=== PATIENT | female | born 1950 | race Caucasian/White ===

== ENCOUNTER 2020-03-25 07:44 | Outpatient (CLI) | payer MEDICARE, OTHER, SELFPAY ==
--- NOTE | ~2020-03-25 | MM_ITS ---
EXAMINATION: MM screening [facility] BI w jeanmarie HISTORY: Screening mammogram, family history of breast cancer in her mother. TECHNIQUE: Craniocaudal and mediolateral oblique 3-D tomosynthesis images were obtained and synthetic 2-D images were generated. CAD analysis was submitted and interpreted. COMPARISON: 03/06/2019, 03/03/2018, 03/01/2017 BREAST PARENCHYMAL COMPOSITION: The breasts are heterogeneously dense, which may obscure small masses . FINDINGS: Again seen is a stable left breast mass, consistent with a benign finding. There is no evid ence of suspicious mass, calcification, or architectural distortion to suggest malignancy in either b reast. There has been no suspicious interval change. IMPRESSION: 1. No mammographic evidence of malignancy. 2. Recommend routine screening mammography in one year. BI-RADS Category 2: Benign finding(s). Reviewed, dictated and finalized at location A. STED LIVING CARE MANAGER
== END 2020-03-25 07:45 | disposition home or self-care (01) ==
LOC: ANHIMG 07:48
PROVIDERS: PCP Family Medicine; Visit Provider Obstetrics & Gynecology
DX: Z12.31 Encounter for screening mammogram for malignant neoplasm of breast (principal)
CPT/HCPCS: 77063; 77067

== ENCOUNTER 2021-05-29 08:10 | Outpatient (CLI) | payer MEDICARE, OTHER, SELFPAY ==
--- NOTE | ~2021-05-29 | MM_ITS ---
EXAMINATION: MM screening [facility] BI w jeanmarie HISTORY: Screening TECHNIQUE: Craniocaudal and mediolateral oblique 3-D tomosynthesis images were obtained and synthetic 2-D images were generated. CAD analysis was submitted and interpreted. COMPARISON: Comparison to multiple prior studies sequentially, with oldest reviewed study dated 12/23. BREAST PARENCHYMAL COMPOSITION: The breasts are heterogeneously dense, which may obscure small masses . FINDINGS: There are developing asymmetries in the subareolar location of the right breast. The left b reast is stable. No significant change to benign-appearing mass in the lower outer quadrant of the le ft breast. IMPRESSION: 1. Developing right breast asymmetries. 2. Additional mammographic views and possible breast ultrasound are recommended. BI-RADS Category 0: Incomplete: Needs additional imaging evaluation. Reviewed, dictated and finalized at location A. IMPRESSION: 1. Developing right breast asymmetries. 2. Additional mammographic views and possible breast ultrasound are recommended . BI-RADS Category 0: Incomplete: Needs additional imaging evaluation.
== END 2021-05-29 08:11 | disposition home or self-care (01) ==
LOC: ANHIMG 08:13
PROVIDERS: PCP Family Medicine; Visit Provider Physician Assistant
DX: Z12.31 Encounter for screening mammogram for malignant neoplasm of breast (principal); R92.8 Other abnormal and inconclusive findings on diagnostic imaging of breast
CPT/HCPCS: 77063; 77067

== ENCOUNTER 2021-05-30 10:42 | Outpatient (CLI) | payer MEDICARE, OTHER, SELFPAY ==
--- NOTE | ~2021-05-30 | MMUS_ITS ---
EXAMINATION: MM diagnostic [facility] RT w jeanmarie, US breast RT complete HISTORY: Follow-up right breast asymmetries TECHNIQUE: Additional 3-D tomosynthesis images of the right breast were performed and synthetic 2-D i mages were generated. CAD analysis was submitted and interpreted. High resolution complete right margy st ultrasound was performed. COMPARISON: Comparison to multiple prior studies sequentially, with oldest reviewed study dated 12/24. BREAST PARENCHYMAL COMPOSITION: The breasts are heterogenously dense, which may obscure small masses FINDINGS: MAMMOGRAPHIC FINDINGS: There is a partially circumscribed mass in the upper inner quadrant of the right breast, middle third which is partially obscured by fibroglandular tissue. ULTRASOUND: Complete right breast ultrasound including all 4 quadrants in the retroareolar region: At 12:00, 2 cm from the nipple there are 2 adjacent cysts measuring up to 6 mm. At 10:00, 8 cm from the nipple ther e is a benign-appearing 1.6 cm intramammary lymph node. At 11:00, 2 cm from the nipple there is a 4 m m cyst. At 11:00, 2 cm from the nipple, there is a hypoechoic structure measuring less than 2 mm, loc ated superficially with antiparallel configuration, most likely a complicated cyst. No internal vascu larity. IMPRESSION: 1. Probable benign 1.7 mm lesion of the right breast at 11:00, 2 cm from the nipple. Multiple additio nal benign masses are identified in the right breast by ultrasound. 2. Recommend 6 month follow-up diagnostic right mammogram and ultrasound BI-RADS category 3, probably benign findings. Reviewed, dictated and finalized at location A. IMPRESSION: 1. Probable benign 1.7 mm lesion of the right breast at 11:00, 2 cm from the ni pple. Multiple additional benign masses are identified in the right breast by u ltrasound. 2. Recommend 6 month follow-up diagnostic right mammogram and ultrasound BI-RADS category 3, probably benign findings.
== END 2021-05-30 10:43 | disposition home or self-care (01) ==
LOC: ANHIMG 10:43
PROVIDERS: PCP Family Medicine; Visit Provider Physician Assistant
DX: N63.11 Unspecified lump in the right breast, upper outer quadrant (principal); N60.01 Solitary cyst of right breast
CPT/HCPCS: 76641; 77061; 77065; G0279

== ENCOUNTER 2021-12-04 11:59 | Outpatient (CLI) | payer MEDICARE, OTHER, SELFPAY ==
--- NOTE | ~2021-12-04 | MMUS_ITS ---
EXAMINATION: MM diagnostic [facility] RT w jeanmarie, US breast RT complete HISTORY: Follow-up right breast mass TECHNIQUE: Additional 3-D tomosynthesis images of the right breast were performed and synthetic 2-D i mages were generated. CAD analysis was submitted and interpreted. High resolution complete right margy st ultrasound was performed. COMPARISON: Comparison to multiple prior studies sequentially, with oldest reviewed study dated 09/2017. BREAST PARENCHYMAL COMPOSITION: The breasts are heterogeneously dense, which may obscure small masses FINDINGS: MAMMOGRAPHIC FINDINGS: There is a small mass in the upper aspect of the right breast on medial lateral view which is obscure d by overlying fibroglandular tissue. No suspicious calcifications or architectural distortion. ULTRASOUND: Complete right breast ultrasound including all 4 quadrants in the subareolar location: At 12:00 near the nipple there are 2 adjacent cysts, largest measuring 6 mm. This corresponds to the mammographic f inding. No suspicious sonographic masses are identified. IMPRESSION: 1. No evidence for malignancy in the right breast. Benign findings. 2. Routine yearly screening mammogram and regular clinical breast examination are recommended. BI-RADS Category 2: Benign finding(s). Reviewed, dictated and finalized at location A. IMPRESSION: 1. No evidence for malignancy in the right breast. Benign findings. 2. Routine yearly screening mammogram and regular clinical breast examination a re recommended. BI-RADS Category 2: Benign finding(s).
== END 2021-12-04 12:00 | disposition home or self-care (01) ==
LOC: ANHIMG 12:00
PROVIDERS: PCP Internal Medicine; Visit Provider Surgery
DX: R92.8 Other abnormal and inconclusive findings on diagnostic imaging of breast (principal)
CPT/HCPCS: 76641; 77061; 77065; G0279

== ENCOUNTER 2022-12-21 08:41 | Outpatient (CLI) | payer MEDICARE, OTHER, SELFPAY ==
--- NOTE | ~2022-12-21 | MM_ITS ---
EXAMINATION: MM screening [facility] BI w jeanmarie HISTORY: Screening mammogram, family history of breast cancer in her mother. TECHNIQUE: Craniocaudal and mediolateral oblique 3-D tomosynthesis images were obtained and synthetic 2-D images were generated. CAD analysis was submitted and interpreted. COMPARISON: 11/04/2021, 05/30/2021, 05/29/2021, 03/25/2020 BREAST PARENCHYMAL COMPOSITION: There are scattered areas of fibroglandular density. FINDINGS: Stable bilateral breast masses are consistent with benign findings. No suspicious mass, mehran cification, or architectural distortion are identified in either breast to suggest malignancy. There has been no suspicious interval change. IMPRESSION: 1. No mammographic evidence of malignancy. 2. Recommend routine screening mammography in one year. BI-RADS Category 2: Benign finding(s). Reviewed, dictated and finalized at location A.
== END 2022-12-21 08:42 | disposition home or self-care (01) ==
LOC: ANHIMG 08:43
PROVIDERS: PCP Internal Medicine; Visit Provider Obstetrics & Gynecology
DX: Z12.31 Encounter for screening mammogram for malignant neoplasm of breast (principal)
CPT/HCPCS: 77063; 77067

== ENCOUNTER 2024-02-04 09:23 | Outpatient (RCR) | payer MEDICARE, SELFPAY ==
[2024-02-04 10:22] VITALS: BMI 28.3
== END 2024-04-24 08:15 | disposition home or self-care (01) ==
LOC: ANHWOC 09:23
PROVIDERS: PCP Internal Medicine; Visit Provider Internal Medicine
DX: S39.91XA Unspecified injury of abdomen, initial encounter (principal); Z48.01 Encounter for change or removal of surgical wound dressing
CPT/HCPCS: 99213; A9270; G0463

== ENCOUNTER 2024-05-09 11:00 | Outpatient (RCR) | payer MEDICARE, SELFPAY ==
--- NOTE | 2024-04-07 17:43 | OPREHPOC ---
Outpatient Therapy Plan of Care This is a Multidisciplinary Plan of Care that may contain components documented by all disciplines (PT, OT, and ST.) PT Problem 1 PT Problem #1 Knowledge Deficit PT Goal 1 Goal / Goal Update [place] with HEP Target Visit 4 PT Goal 2 Goal / Goal Update Report no pain greater than 2/10 for 2 consecutive weeks Target Visit 10 PT Problem 2 PT Problem #2 Impaired Range of Motion PT Goal 1 Goal / Goal Update 1. Improve R hip flexion to 90 degrees 2. Improve venkat hip abduction to 35 degrees 3. Improve R hip extension to 10 degrees to assist with terminal stance of gait Target Visit 10 PT Goal 2 Goal / Goal Update Improve R knee extension to 0 degrees to help with terminal stance Target Visit 10 PT Problem 3 PT Problem #3 Impaired Strength PT Goal 1 Goal / Goal Update 1. Improve R hip lateral strength to 4/5 to improve lateral stability with ADLs 2. Improve R hip flexion strength to 4+/5 to assist with improve foot clearence Target Visit 10
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
--- NOTE | 2024-05-09 13:21 | OPREHPOC ---
Outpatient Therapy Plan of Care This is a Multidisciplinary Plan of Care that may contain components documented by all disciplines (PT, OT, and ST.) PT Problem 1 PT Problem #1 Knowledge Deficit PT Goal 1 Goal / Goal Update [place] with HEP Target Visit 4 Progress Met PT Goal 2 Goal / Goal Update Report no pain greater than 2/10 for 2 consecutive weeks Target Visit 10 Progress Met PT Problem 2 PT Problem #2 Impaired Range of Motion PT Goal 1 Goal / Goal Update 1. Improve R hip flexion to 90 degrees 2. Improve venkat hip abduction to 35 degrees 3. Improve R hip extension to 10 degrees to assist with terminal stance of gait Target Visit 10 Progress Partially Met PT Goal 2 Goal / Goal Update Improve R knee extension to 0 degrees to help with terminal stance Target Visit 10 Progress Partially Met PT Problem 3 PT Problem #3 Impaired Strength PT Goal 1 Goal / Goal Update 1. Improve R hip lateral strength to 4/5 to improve lateral stability with ADLs 2. Improve R hip flexion strength to 4+/5 to assist with improve foot clearence Target Visit 10 Progress Partially Met
--- NOTE | 2024-05-09 13:21 | PTOPDC ---
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 She has non painful clicking in the hip that at times feel limiting. She has follow up with MD in May and plans to discuss moving forward with REESE. Reported Pain Level Pain Score 0: Self Report Assessment PT Clinical Summary Patient has seen some ROM and strength improvement but still shows considerable limitation in functional hip motion which feels related to arthritis in the hip given the motion and end feel . I feel that she would benefit from REESE shoulder she be suitable for such. She is independent and complaint with HEP and suitable for disacharge at this time. Plan of Care PT Services Indicated Yes
== END 2024-05-16 07:47 | disposition home or self-care (01) ==
LOC: ANHGOSHPT 11:00
PROVIDERS: PCP Internal Medicine; Visit Provider Internal Medicine
DX: R26.89 Other abnormalities of gait and mobility (principal); S32.9XXA Fracture of unspecified parts of lumbosacral spine and pelvis, initial encounter for closed fracture; M25.551 Pain in right hip; R26.2 Difficulty in walking, not elsewhere classified
CPT/HCPCS: 97110; 97116; 97140; 97161; 97530

== ENCOUNTER 2024-05-24 09:12 | Outpatient (CLI) | payer MEDICARE, SELFPAY ==
--- NOTE | ~2024-05-24 | MM_ITS ---
EXAMINATION: MM screening akosua BI w jeanmarie HISTORY: Screening TECHNIQUE: Craniocaudal and mediolateral oblique 3-D tomosynthesis images were obtained and synthetic 2-D images were generated. CAD analysis was submitted and interpreted. COMPARISON: Comparison to multiple prior studies sequentially, with oldest reviewed study dated 03/06. BREAST PARENCHYMAL COMPOSITION: Dense: The breasts are heterogeneously dense, which may obscure small masses FINDINGS: There is developing mass in the upper inner quadrant of the right breast, middle third. Th e left breast is stable without evidence for malignancy. IMPRESSION: 1. Developing right breast mass, upper inner quadrant, middle third. 2. Additional mammographic views and possible breast ultrasound are recommended. BI-RADS Category 0: Incomplete: Needs additional imaging evaluation. Reviewed, dictated and finalized at location A. IMPRESSION: 1. Developing right breast mass, upper inner quadrant, middle third. 2. Additional mammographic views and possible breast ultrasound are recommended . BI-RADS Category 0: Incomplete: Needs additional imaging evaluation.
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
== END 2024-05-24 09:13 | disposition home or self-care (01) ==
LOC: ANHIMG 09:14
PROVIDERS: PCP Internal Medicine; Visit Provider Obstetrics & Gynecology
DX: Z12.31 Encounter for screening mammogram for malignant neoplasm of breast (principal); R92.8 Other abnormal and inconclusive findings on diagnostic imaging of breast
CPT/HCPCS: 77063; 77067

== ENCOUNTER 2024-05-26 10:45 | Outpatient (CLI) | payer MEDICARE, SELFPAY ==
--- NOTE | ~2024-05-26 | MMUS_ITS ---
EXAMINATION: US breast RT limited, MM diagnostic akosua RT w jeanmarie HISTORY: Follow-up right breast mass TECHNIQUE: Additional 3-D tomosynthesis images of the right breast were performed and synthetic 2-D i mages were generated. CAD analysis was submitted and interpreted. High resolution Limited right breas t ultrasound was performed. COMPARISON: Comparison to multiple prior studies sequentially, with oldest reviewed study dated 02/2019. BREAST PARENCHYMAL COMPOSITION: Not dense: There are scattered areas of fibroglandular density. FINDINGS: MAMMOGRAPHIC FINDINGS: There is a small mass in the upper inner quadrant of the right breast, anterior third, partially obsc ured by fibroglandular tissue. There are no suspicious calcifications or architectural distortion. ULTRASOUND: Limited right breast ultrasound: At 12:00 near the nipple there are 2 adjacent cysts, largest measuri ng 9 mm. No suspicious masses to suggest malignancy. IMPRESSION: 1. Clustered cysts measuring up to 9 mm located at 1:00, near the nipple, corresponding to the mammog raphic finding. No evidence for malignancy in the right breast. 2. Routine yearly screening mammogram and regular clinical breast examination are recommended. BI-RADS Category 2: Benign finding(s). Reviewed, dictated and finalized at location A. IMPRESSION: 1. Clustered cysts measuring up to 9 mm located at 1:00, near the nipple, corre sponding to the mammographic finding. No evidence for malignancy in the right b reast. 2. Routine yearly screening mammogram and regular clinical breast examination a re recommended. BI-RADS Category 2: Benign finding(s).
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
== END 2024-05-26 10:46 | disposition home or self-care (01) ==
LOC: ANHIMG 10:46
PROVIDERS: PCP Internal Medicine; Visit Provider Obstetrics & Gynecology
DX: R92.8 Other abnormal and inconclusive findings on diagnostic imaging of breast (principal)
CPT/HCPCS: 76642; 77061; 77065; G0279

== ENCOUNTER 2025-01-08 13:15 | Outpatient (RCR) | payer MEDICARE, SELFPAY ==
--- NOTE | 2024-10-26 09:50 | OPREHPOC ---
Outpatient Therapy Plan of Care This is a Multidisciplinary Plan of Care that may contain components documented by all disciplines (PT, OT, and ST.) PT Problem 1 PT Problem #1 Knowledge Deficit PT Goal 1 Goal / Goal Update 1. Patient to demonstrate independence with home exercise program for improved self-reliance of symptom management. Target Visit 10 PT Problem 2 PT Problem #2 Pain PT Goal 1 Goal / Goal Update 1. Patient to decrease subjective reports of pain to <3/10 for improved ADL tolerance. 2. Pt will increase LEFS score by at least 9 points in order to demonstrate the minimal clinically important difference (MCID) in functional improvement. Target Visit 10 PT Problem 3 PT Problem #3 Impaired Functional Mobility PT Goal 1 Goal / Goal Update 1. Patient will improve lower extremity strength and functional mobility by reducing Five Times Sit -to-Stand test time to <15 seconds to demonstrate reduced fall risk and improved transitional movements. 2. Pt will improve 2 MWT to >300 with the use of straight cane for advancements in gait speed. Target Visit 18 PT Problem 4 PT Problem #4 Impaired Range of Motion PT Goal 1 Goal / Goal Update 1. Pt to demonstrate an increase of R hip AROM to WFL in all planes 2. Patient to demonstrate an increase of R knee extension to lacking 10 degrees or less for improved gait mechanics Target Visit 18 PT Problem 5 PT Problem #5 Impaired Strength PT Goal 1 Goal / Goal Update 1. Patient to demonstrate RLE strength >=4+/5 for improved functional stability required for ADLs. Target Visit 18
--- NOTE | 2024-10-26 09:50 | PTOPEVAL1 ---
Assessment and note entered by Gabriele Ortiz PT Evaluation Information Assessment Status Evaluation Diagnosis R REESE ICD-10 Condition Codes (PT) Pain in right hip M25.551,Abnormalities of gait and mobility R26.9,Weakness R53.1 Other ICD-10 Condition Codes ( Z96.641 PT) Subjective Information Patient presents status post R REESE on September 23. Pt had home health physical therapy following surgery twice a week. Pt notes she saw success with home health therapy but feels like she needs more strength and wants to walk without a limp. Patient is currently using front wheeled walker but states she has walked short distances with a straight cane. Patient is doing stairs one at a time and only has 2 stairs to enter her home. Pt had 4 week follow up and was cleared for OP PT and has follow up Dec 20. Reported Pain Level Pain Score 3: Self Report Assessment PT Clinical Summary Patient presents to physical therapy following a R REESE on 09-23-24. Patient demonstrates post surgical weakness, pain, decreased mobility, abnormal posture, gait deficit, and decreased flexibility that limit their ability to perform activities of daily living and functional movements. Patient will benefit from skilled physical therapy to address the above listed deficits and return to prior level of function. Home exercise program instructed and written handout provided, exercises tolerated well with no adverse effects to note post-session. Patient was educated on importance of adherence to home exercise program. Patient was also educated on anatomy, prognosis, and plan of care Plan of Care Interventions Electrical Stimulation,Gait Training,Hot Pack/Cold Pack,Manual Therapy,Neuro Re-education, Therapeutic Activities,Therapeutic Exercise, Ultrasound,Other PT Services Indicated Yes Treatment Frequency and 2-3x week for 18 visits Duration These treatments will address the objective and functional deficits as defined above. The patient will be advanced safely and appropriately in order for the patient to progress towards his/her prior level of function. Additional exercises will be introduced and as well as a comprehensive home exercise program upon discharge, if needed, ?to ensure carryover of functional gains achieved in the clinic. This treatment plan has been reviewed and agreement upon by the patient.
--- NOTE | 2024-11-27 12:28 | PTOPPROG ---
Assessment and note entered by Gbariele Ortiz, PT Evaluation Information Assessment Status Progress Diagnosis R REESE ICD-10 Condition Codes (PT) Pain in right hip M25.551,Abnormalities of gait and mobility R26.9,Weakness R53.1 Other ICD-10 Condition Codes ( Z96.641 PT) Subjective Information Pt reports she feels 75% recovered overall. She notes improvements in her motion and ease of doing exercises and stretches, she notes she stands straighter. She notes continued difficulty with walking without a AD due to feeling unstable, she has difficulty putting on her own socks and shoes. Pt would like to continue building strength and confidence in her motions to allow her to return walking with out assistance and return to hobbies. Assessment PT Clinical Summary Patient's R hip has improved overall as evidenced by advancements in symptoms, mobility, strength, and overall functional use of the extremity. However, some limitations are still present. Patient would benefit from continued skilled physical therapy services to address the above listed impairments and facilitate a return to their prior level of function. Plan of Care Interventions Electrical Stimulation,Gait Training,Hot Pack/Cold Pack,Manual Therapy,Neuro Re-education, Therapeutic Activities,Therapeutic Exercise, Ultrasound,Other PT Services Indicated Yes Treatment Frequency and Continue scheduled visits until MD appointment Duration These treatments will address the objective and functional deficits as defined above. The patient will be advanced safely and appropriately in order for the patient to progress towards his/her prior level of function. Additional exercises will be introduced and as well as a comprehensive home exercise program upon discharge, if needed, ?to ensure carryover of functional gains achieved in the clinic. This treatment plan has been reviewed and agreement upon by the patient.
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
--- NOTE | 2025-01-08 14:14 | PTOPDC ---
Assessment and note entered by Gabriele Ortiz, PT Evaluation Information Assessment Status Discharge Diagnosis R REESE ICD-10 Condition Codes (PT) Pain in right hip M25.551,Abnormalities of gait and mobility R26.9,Weakness R53.1 Other ICD-10 Condition Codes ( Z96.641 PT) Subjective Information Pt reports she feels 80% recovered overall. She feels she has improved of all aspects of her hip strength and R leg mobility. However she still has major concerns with her walking pattern which hurts her back, hips and knees the longer she is up on her feet. This now her biggest concern. She also reports continued difficulty getting into and out of the car, inability to lay on stomach and inability to put on socks and shoes. Reported Pain Level Pain Score 2: Self Report Assessment PT Clinical Summary The patient has met all established short-term and long-term goals for the current physical therapy episode of care, demonstrating significant progress in strength, flexibility, and functional independence related to the original injury. The patient reports a subjective improvement of 80% and is able to perform activities of daily living without requiring therapeutic intervention. However, the patient currently expresses concern that her antalgic gait pattern may be causing secondary pain and stress in other musculoskeletal areas not addressed by the current plan of care, which focused solely on the initial diagnosis. Due to the successful completion of the current goals , the patient is being discharged from physical therapy today. She has been educated on the importance of an MD follow-up to address the new concerns regarding her gait mechanics and related pain, and plans to seek a new prescription for physical therapy if deemed necessary by her physician. Plan of Care PT Services Indicated No
== END 2025-01-09 10:25 | disposition home or self-care (01) ==
LOC: ANHGOSHPT 13:15
PROVIDERS: PCP Internal Medicine
DX: Z47.1 Aftercare following joint replacement surgery (principal); M25.551 Pain in right hip; R26.9 Unspecified abnormalities of gait and mobility; R53.1 Weakness; Z96.641 Presence of right artificial hip joint
CPT/HCPCS: 97110; 97112; 97116; 97161; 97530